=== PATIENT | female | born 1970 | race Asian ===

== ENCOUNTER 2017-01-15 17:40 | Emergency (ER) | payer OTHER ==
[2017-01-15 21:21] LABS: BASOPHIL % 0.5 % (0-2); PLATELET COUNT 332 x10^3mcL (130-400); RED CELL DISTRIBUTION WIDTH 13.5 % (11.5-14.5)
[2017-01-15 21:23] LABS: CALCIUM 9.3 mg/dL (8.5-10.1); CARBON DIOXIDE 24.9 mmol/L (21-32); CHLORIDE SERUM 101 mmol/L (98-107); CREATININE SERUM 0.6 mg/dL (0.6-1.0); GFR1 > 60 mL/min; GLUCOSE SERUM 123 mg/dL (74-106); POTASSIUM SERUM 3.9 mmol/L (3.5-5.1); SODIUM SERUM 138 mmol/L (136-145)
[2017-01-15 21:28] LABS: ALBUMIN 4.3 g/dL (3.4-5.0); ALKALINE PHOSPHATASE 64 U/L (46-116); ALT/SGPT 24 U/L (14-59); AST/SGOT 21 U/L (15-37); BILIRUBIN TOTAL 0.79 mg/dL (0.20-1.00)
[2017-01-15 22:56] VITALS: BP 104/73
== END 2017-01-15 22:56 | disposition home or self-care (01) ==
LOC: ED 17:40
PROVIDERS: Emergency Medicine
DX: R51 Headache (principal); D72.829 Elevated white blood cell count, unspecified; I10 Essential (primary) hypertension; R11.2 Nausea with vomiting, unspecified; R20.2 Paresthesia of skin
CPT/HCPCS: J1200; J2765; J7030